=== PATIENT | male | born 1955 | race Caucasian/White ===

== ENCOUNTER 2020-03-22 05:54 | Day surgery (SDC) | payer BC ==
[2020-03-15 09:22] LABS: Absolute Lymphocytes (CBC) 1.2 K/uL (0.7-4.9); Basophils % 0.5 % (0-1.3); Hematocrit 39.2 % (39.6-49.0); Lymphocytes % 24.7 % (15.3-44.8); MPV 9.3 fL (7.6-11.3); RBC Red Blood Cell Count 4.56 M/uL (4.33-5.43)
[2020-03-15 09:36] LABS: Protime INR 1.03
[2020-03-15 09:42] LABS: Potassium 4.2 mmol/L (3.5-5.1)
--- NOTE | 2020-03-15 12:29 | RAD REPORT ---
EXAM DESCRIPTION: Fabiola Jimenez (2 Views)03/15/2020 9:02 am CLINICAL HISTORY: Preop for rotator cuff surgery COMPARISON: None FINDINGS: The lungs appear clear of acute infiltrate. The heart is normal size. Postsurgical changes involve chest IMPRESSION: No acute abnormalities displayed
--- OUTSIDE RECORDS SUMMARY | 2020-03-22 05:56 | XMS REPORT | Continuity of Care Document ---
:1955 Author Organization [employer] Care Team Providers Name Role Phone [employer] Unavailable Un available Problems Problem Status Onset Classification Date Comments Sourc e Date Reported Diabetes mellitus Active Problem 03/03/2020 M ischer (disorder) Neuro Hyperlipidemia Active Problem 03/03/2020 Misc her (disorder) Neuro Hypertensive Active Problem 03/03/2020 Mische r disorder, systemic N euro arterial (disorder) Hypothyroidism Active Problem 03/03/2020 Misc her (disorder) Neuro Transient ischemic Active Problem 03/03/2020 Mischer attack (disorder) Ne uro Medications Medication Details Route Status Patient Ordering Order Source Instructions Provider Date Metformin 1 tab, PO, Active Mischer hydrochloride BID, 0 020 Neuro 1000 MG / Refill(s) sitagliptin 50 MG Oral Tablet [Janumet ] Thyroxine 0.3 mg, Active Mischer PO, Daily, 020 Neuro 0 Refill(s) atorvastatin 40 mg, PO, Active Mischer Daily, 0 020 Neuro Refill(s) carvedilol 6.25 mg, Active Mischer PO, BID, 0 020 Neuro Refill(s) Lisinopril 2.5 mg, Active Mischer PO, Daily, 020 Neuro 0 Refill(s) Aspirin 81 mg, PO, Active Mischer Daily, 0 020 Neuro Refill(s) Allergies, Adverse Reactions, Alerts No Known Medication Allergies Immunizations No Data Provided for This Section Results No Data Provided for This Section Pathology Reports No Data Provided for This Section Diagnostic Reports No Data Provided for This Section Consultation Notes No Data Provided for This Section Discharge Summaries No Data Provided for This Section History and Physicals No Data Provided for This Section Vital Signs Vital Sign Value Date Comments Source Systolic (mm Hg) 129 03/01/2020 [facility] Umer ro Diastolic (mm Hg) 72 03/01/2020 [facility] Ne uro Heart Rate 60 03/01/2020 [facility] Neuro Respitory Rate 16 03/01/2020 [facility] Neuro Height 172.72 cm 03/01/2020 [facility] Neuro Weight 81.818 03/01/2020 [facility] Neuro BMI Calculated 27.43 03/01/2020 [facility] Neuro Temperature Oral (F) 97.7 F 03/01/2020 [facility] Neuro Encounters Location Location Encounter Encounter Reason Attending ADM DC Stat us Source Details Type Number For Provider Date Date Visit Outpatient [id number] Sorin 03/01 Active [facility] [place] [facility] Outpatient [id number] Sorin 03/01 03/02 [facility] Neurology [facility] /2019 Neuro [place] [facility] [id number] Sorin 04/12 Active [facility] [place] Procedures Procedure Code Date Perfomer Comments Source Coronary bypass [id number] [facility] N euro graft angiography Assessment and Plan No Data Provided for This Section Plan of Care No Data Provided for This Section Social History Social History Date Source Social History TypeResponse 03/01/2020 [facility] Neur o Alcohol Type Beer.1 Employment/School 2 Smoking Status Never smoker; Exposure to Tobacco Smoke Unable to obtain; Cigarette Smoking Last 365 Days Unable to obtain; Reg Smoking Cessation Counseling No entered on: 03/01/20 1Beer once [id number] release medical inf ormation to - Grace Munizmasood. POA- Family History No Data Provided for This Section Advance Directives No Data Provided for This Section Functional Status No Data Provided for This Section
--- OUTSIDE RECORDS SUMMARY | 2020-03-22 05:57 | XMS REPORT ---
:1955 Author Organization [employer] Care Team Providers Name Role Phone Fredy Leo Provider Role Unavailable Allergies No Known Allergies Problems Problem Type Condition Code Onset Dates Condition Statu s Problem Hyperlipidemia E78.5 Active Problem Otitis externa, left H60.92 Active Problem H/O TIA (transient ischemic attack) Z86.73 Active and stroke Problem Tendonitis M77.9 Active Problem Diabetes type 2, uncontrolled E11.65 Active Problem Benign essential HTN I10 Active Problem Hypothyroidism E03.9 Active Problem Primary osteoarthritis of right M19.011 Active shoulder Problem Other chronic pain G89.29 Active Problem Tear of right rotator cuff, M75.101 Active unspecified tear extent, unspecified whether traumatic Problem Chronic hepatitis B B18.1 Active Problem Atherosclerosis of coronary artery I25.10 Active Problem Acute gout of left foot, M10.9 Act baylee unspecified cause Problem Gouty arthritis of left great toe M10.9 Active Medications No Known Medications Results No Known Results Summary Purpose [employer] Submission
--- OUTSIDE RECORDS SUMMARY | 2020-03-22 05:57 | XMS REPORT ---
:1955 Author Organization [employer] Care Team Providers Name Role Phone Jonathan Foreign Provider Role Unavailable Allergies No Known Allergies [...]
--- OUTSIDE RECORDS SUMMARY | 2020-03-22 05:57 | XMS REPORT ---
:1955 Author Organization [facility] t Address [address] [place] [address] Care Team Providers Name Role Phone Isrrael Spain Attending Clinician Problems Condition Condition Condition Status Onset Resolution Last Treating Co mments Source Name Details Category Date Date Treatment Clinician Date H/O TIA H/O TIA Problem Active [facility] (transient (transient [facility] k[facility] - ischemic ischemic Memori a attack) attack) l and stroke and stroke Ou tpati ent Clinics Chronic Chronic Problem Active [facility] hepatitis hepatitis [facility] - B B [facility] Hypothyroi Hypothyroi Problem Active [facility] dism dism [facility] Benign Benign Problem Active [facility] essential essential [facility] - HTN HTN [facility] Hyperlipid Hyperlipid Problem Active [facility] emia emia [facility] Atheroscle Atheroscle Problem Active [facility] rosis of rosis of [facility] - coronary coronary Memori a artery artery l Outpati ent Clinics Otitis Otitis Problem Active [facility] externa, externa, [facility] - left left [facility] Diabetes Diabetes Problem Active [facility] type 2, type 2, [facility] - uncontroll uncontroll Me moria ed ed l Outpati ent Clinics Tendonitis Tendonitis Problem Active [facility] Acute gout Acute gout Problem Active [facility] of left of left [facility] - foot, foot, Memoria unspecifie unspecifie l d cause d cause Outpati ent Clinics Other Other Problem Active [facility] chronic chronic [facility] pain pain [facility] Primary Primary Problem Active [facility] osteoarthr osteoarthr Deneen kes - itis of itis of Memoria right right l shoulder shoulder Outpat i ent Clinics Tear of Tear of Problem Active [facility] right right [facility] - rotator rotator Memoria cuff, cuff, l unspecifie unspecifie Ou tpati d tear d tear ent extent, extent, Clinics unspecifie unspecifie d whether d whether traumatic traumatic Episodic Episodic Problem [facility] memory memory [facility] loss loss [facility] Diabetes Problem Active 2020-03-03 Mis yoon mellitus 23:16:53 Neuro (disorder) Diabetes mellitus (disorder) Active Problem 03/03/2020 [facility] Neuro Hyperlipid Problem Active 2020-03-03 M ischer emia 23:16:53 Neuro (disorder) Hyperlipid emia (disorder) Active Problem 03/03/2020 [facility] Neuro Hypertensi Problem Active 2020-03-03 M ischer ve 23:16:53 Neuro disorder, systemic Hypertensi arterial ve (disorder) disorder, systemic arterial (disorder) Active Problem 03/03/2020 [facility] Neuro Hypothyroi Problem Active 2020-03-03 M ischer dism 23:16:53 Neuro (disorder) Hypothyroi dism (disorder) Active Problem 03/03/2020 [facility] Neuro Transient Problem Active 2020-03-03 Mi juancarlos ischemic 23:16:53 Neuro attack (disorder) Transient ischemic attack (disorder) Active Problem 03/03/2020 [facility] Neuro Allergies, Adverse Reactions, Alerts This patient has no known allergies or adverse reactions. Social History Social Habit Start Date Stop Date Quantity Comments Source Social History 2020-03-01 2020-03-01 [facility] 20:38:53 20:38:53 [facility] Medications Ordered Filled Start Stop Current Ordering Indication Dosage Frequency Signature Comments Components Source Medication Medication Date Date Medication? Clinician (SIG) Name Name Metformin Yes 1 tab, PO, Mi juancarlos hydrochlori 5-08 BID, 0 Neuro de 1000 MG 20:33: Refill(s) / 00 sitagliptin 50 MG Oral Tablet [Janumet ] Thyroxine Yes 0.3 mg, Misch er 5-08 PO, Daily, Neuro 20:33: 0 00 Refill(s) atorvastati Yes 40 mg, PO, Mischer n 5-08 Daily, 0 Neuro 20:33: Refill(s) 00 carvedilol Yes 6.25 mg, Mis yoon 5-08 PO, BID, 0 Neuro 20:33: Refill(s) 00 Lisinopril Yes 2.5 mg, Misc her 5-08 PO, Daily, Neuro 20:33: 0 00 Refill(s) Aspirin 2019-0 Yes 81 mg, PO, Misc her 5-08 Daily, 0 Neuro 20:33: Refill(s) 00 Cyclobenzap Cyclobenzap 2019- Yes Fredy [address] [facility] rine HCl rine HCl 4-20 Leo as needed Deneen kes - 00:00: for muscle Memoria 00 spasm l Outpati ent Clinics True Metrix True Metrix 0 Yes Fredy [address] [facility] Blood Blood 5-15 [facility] Glucose Glucose 00:00: Memoria Test Test 00 l Outpati ent Clinics Carvedilol Carvedilol Yes Fredy [address] [facility] Lipitor Lipitor Yes Fredy [address] [facility] Aspir-81 Aspir-81 Yes Fredy [address] [facility] Synthroid Synthroid Yes Fredy [address] [facility] on an [facility] - empty Memoria stomach in l the Outpati morning ent Clinics Benzonatate Benzonatate Yes Fredy not [facility] defined [facility] MethylPREDN MethylPREDN Yes Fredy not [facility] ISolone ISolone Leo defined [facility] Lisinopril Lisinopril Yes Fredy [address] [facility] Janumet XR Janumet XR Yes Fredy [address] [facility] Duexis Duexis 2019- No Fredy [address] [facility] 04-30 Leo [facility] - 00:00 Memoria :00 l Outpati ent Clinics Immunizations Ordered Filled Immunization Date Status Comments [facility] e Immunization Name Name TDAP > 7 TDAP > 7 2019-02-[address] [facility] - Years-Adacel Years-Adacel 00:00:00 [facility] Outpatient Clinics Vital Signs Vital Name Observation Time Observation Value Comments Source Systolic (mm Hg) 2020-03-01 20:31:00 Misc her Neuro Diastolic (mm Hg) 2020-03-01 20:31:00 Mis yoon Neuro Heart Rate 2020-03-01 20:31:00 [facility] Neuro Respitory Rate 2020-03-01 20:31:00 Mische r Neuro Height 2020-03-01 20:31:00 172.72 cm [facility] Neuro Weight 2020-03-01 20:31:00 [facility] Neuro BMI Calculated 2020-03-01 20:31:00 Mische r Neuro Temperature Oral (F) 2020-03-01 20:31:00 97.7 F [facility] Neuro Procedures Procedure Date / Time Performed Performing Clinician Sour e Coronary bypass graft Mischer Ne uro angiography Encounters Start End Encounter Admission Attending Care Care Encounter Source Date/Time Date/Time Type Type Clinicians Facility Department ID 2020-04-12 2020-04-12 Outpatient MHIEALT MHIEALT [id number] [facility] 10:15:00 10:15:00 01 morales Pelayo 2020-03-01 2020-03-02 Outpatient MHIEALT MNA [id number] [facility] 20:15:00 04:59:59 Neurology 00 Neur o Elio 2020-03-01 2020-03-01 Outpatient JAQUAN Spain GRISELDASCHKETURAH [id number] 15:15:00 23:59:59 Sorin 00 Isrrael 2020-03-01 2020-03-01 [facility] [id number] 15:15:00 00 morales Pelayo 2020-02-26 2020-02-26 [facility] [id number] [facility] 15:06:00 15:06:00 [facility] Clinics 2020-02-23 2020-02-23 [facility] [id number] [facility] 08:15:00 08:15:00 t [facility] 2020-02-12 2020-02-12 [facility] [id number] [facility] 11:16:00 11:16:00 t [facility] Medicine [facility] ent [facility] 2020-02-12 2020-02-12 [facility] [id number] [address] 09[facility]06:00 09:06:[address] [facility] [place] [place] Medicine Outpati ent Clinics 2020-02-09 2020-02-09 [facility] [id number] [facility] 10:15:00 10:15:[address] [facility] [place] Medicine Outpati ent Clinics 2020-02-05 2020-02-05 [facility] [id number] [address] 15:19:00 15:19:[address] [facility] [place] Medicine Outpati ent Clinics 2020-01-22 2020-01-22 [facility] [id number] [address] 09:43:00 09:43:00 t [facility] Clin[facility] 2020-01-15 2020-01-15 [facility] [id number] [facility] 10:37:00 10:37:00 t [facility] Clin[facility] 2020-01-12 2020-01-12 [facility] [id number] [facility] [address] 10:00:00 10:00:00 t [facility] Clinics 2019-12-11 2019-12-11 [facility] [id number] 13[facility]12:00 13:12:[address] [facility] [place] Medicine Outpati ent Clinics 2019-12-08 2019-12-08 [facility] [id number] [facility] [address] 10:02:00 10:02:[address] [facility] [place] Medicine Outpati ent Clinics 2019-11-24 2019-11-24 [facility] [id number] [facility] 11:15:00 11:15:[address] [facility] [place] Medicine Outpati ent Clinics 2019-07-26 2019-07-26 [facility] [id number] 15:00:00 15:00:[address] [facility] [place] Medicine Outpati ent Clinics 2019-05-25 2019-05-25 [facility] [id number] [facility] 09:24:00 09:24:[address] [place] [address] [facility] - Drive [facility] Medicine Medicine Outpati ent Clinics 2019-04-13 2019-04-13 [facility] [id number] [facility] 10:15:00 10:15:[address] [place] [address] Luke [facility] - Drive [facility] Medicine Medicine Outpati ent Clinics 2019-04-07 2019-04-07 [facility] [id number] [facility] 08:25:00 08:25:[address] [place] [address] [facility] - Drive [facility] Medicine l Medicine Outpati ent Clinics 2019-02-22 2019-02-22 [facility] [id number] 15:30:00 15:30:[address] [place] [address] Luke [facility] - Drive [facility] [place] Medicine Outpati ent Clinics 2019-01-03 2019-01-03 [facility] [id number] 15:15:00 15:15:[address] [place] [address] Luke [facility] - Drive [facility] [place] Medicine Outpati ent Clinics 2018-12-02 2018-12-02 [facility] [id number] 08:47:00 08:47:00 [place] [address] [facility] - Drive [facility] [place] Medicine Outpati ent Clinics 2018-10-11 2018-10-11 [facility] [id number] [address] 16:06:00 16:06:00 [place] [address] Luke s - Drive [facility] [place] Medicine Outpati ent Clinics 2018-07-21 2018-07-21 [facility] [id number] 12:12:00 12:12:00 [place] [address] Luke s - Drive [facility] [place] Medicine Outpati ent Clinics 2018-07-14 2018-07-14 [facility] [id number] 19:47:00 19:47:00 [place] [address] Luke s - Drive [facility] [place] Medicine Outpati ent Clinics 2018-06-30 2018-06-30 [facility] [id number] [address] 12:44:00 12:44:00 [place] [address] Luke s - Drive [facility] [place] Medicine Outpati ent Clinics 2018-06-06 2018-06-06 [facility] [id number] [address] 13:39:00 13:39:00 t [employer] - [employer] [facility] [place] Medicine Outpati ent Clinics 2018-06-02 2018-06-02 [facility] [id number] [address] 14:30:00 14:30:00 t [employer] - [facility] [place] Medicine Outpati ent Clinics 2018-04-15 2018-04-15 [facility] [id number] [facility] 09:45:00 09:45:00 t [employer] - [facility] [place] Medicine Outpati ent Clinics 2018-03-09 2018-03-09 [facility] [id number] 16:07:00 16:07:00 t [employer] [facility] [place] Medicine Outpati ent Clinics 2018-03-08 2018-03-08 [facility] [id number] 15:26:00 15:26:[address] [facility] [place] Medicine Outpati ent Clinics 2018-03-08 2018-03-08 [facility] [id number] 15:00:00 15:00:[address] [facility] [place] Medicine Outpati ent Clinics Results Test Description Test Time Test Comments Results Result Comments Source Comprehensive Metabolic Panel 2020-01-31 14:48:12 Test Item Value Reference Range Interpretation Comme nts Sodium Level (test code = Sodium Level) 139 mmol/L 136-145 Potassium Level (test code = Potassium Level) 4.4 mmol/L 3.5-5.1 Chloride Level (test code = Chloride Level) 104 mmol/L 98-107 CO2 (test code = CO2) 29 mmol/L 21-32 Anion Gap (test code = Anion Gap) 6 mmol/L 7-16 L BUN (test code = BUN) 13 mg/dL 7-18 Creatinine Level (test code = Creatinine Level) 0.9 mg/dL 0.7-1. 3 Glucose Level (test code = Glucose Level) 150 mg/dL 74-106 H Calcium Level (test code = Calcium Level) 9.3 mg/dL 8.5-10.1 Alk Phos (test code = Alk Phos) 114 IntlUnit/L 45-122 Bilirubin Total (test code = Bilirubin Total) 0.7 mg/dL 0.2-1.0 Albumin Level (test code = Albumin Level) 4.4 g/dL 3.4-5.0 Protein Total (test code = Protein Total) 7.3 g/dL 6.4-8.2 ALT (test code = ALT) 30 IntlUnit/L 12-78 AST (test code = AST) 16 IntlUnit/L 10-34 Creatine [id number] 14:48:12 Test Item Value Reference Range Interpretation Comments CK (test code = CK) 75 IntlUnit/L 39-308 Comprehensive Metabolic [id number] 14:48:12 Test Item Value Reference Range Interpretation Comments Sodium Level (test code = 139 mmol/L 136-145 Sodium Level) Potassium Level (test code 4.4 mmol/L 3.5-5.1 = Potassium Level) Chloride Level (test code 104 mmol/L 98-107 = Chloride Level) CO2 (test code = CO2) 29 mmol/L 21-32 Anion Gap (test code = 6 mmol/L 7-16 L Anion Gap) BUN (test code = BUN) 13 mg/dL 7-18 Creatinine Level (test 0.9 mg/dL 0.7-1.3 code = Creatinine Level) Glucose Level (test code = 150 mg/dL 74-106 H Glucose Level) Calcium Level (test code = 9.3 mg/dL 8.5-10.1 Calcium Level) Alk Phos (test code = Alk 114 IntlUnit/L 45-122 Phos) Bilirubin Total (test code 0.7 mg/dL 0.2-1.0 = Bilirubin Total) Albumin Level (test code = 4.4 g/dL 3.4-5.0 Albumin Level) Protein Total (test code = 7.3 g/dL 6.4-8.2 Protein Total) ALT (test code = ALT) 30 IntlUnit/L 12-78 AST (test code = AST) 16 IntlUnit/L 10-34 eGFR AA (test code = eGFR >60 mL/min/1.73 m2 N AA) Comprehensive Metabolic [id number] 14:48:12 Test Item Value Reference Range Interpretation Comments Sodium Level (test code = 139 mmol/L 136-145 Sodium Level) Potassium Level (test code 4.4 mmol/L 3.5-5.1 = Potassium Level) Chloride Level (test code 104 mmol/L 98-107 = Chloride Level) CO2 (test code = CO2) 29 mmol/L 21-32 Anion Gap (test code = 6 mmol/L 7-16 L Anion Gap) BUN (test code = BUN) 13 mg/dL 7-18 Creatinine Level (test 0.9 mg/dL 0.7-1.3 code = Creatinine Level) Glucose Level (test code = 150 mg/dL 74-106 H Glucose Level) Calcium Level (test code = 9.3 mg/dL 8.5-10.1 Calcium Level) Alk Phos (test code = Alk 114 IntlUnit/L 45-122 Phos) Bilirubin Total (test code 0.7 mg/dL 0.2-1.0 = Bilirubin Total) Albumin Level (test code = 4.4 g/dL 3.4-5.0 Albumin Level) Protein Total (test code = 7.3 g/dL 6.4-8.2 Protein Total) ALT (test code = ALT) 30 IntlUnit/L 12-78 AST (test code = AST) 16 IntlUnit/L 10-34 eGFR AA (test code = eGFR >60 mL/min/1.73 m2 N AA) eGFR Non-AA (test code = >60 mL/min/1.73 m2 N eGFR Non-AA) Troponin [id number] 14:46:15 Test Item Value Reference Range Interpretation Comments Troponin-I (test code = <0.015 ng/mL 0.010-0.040 Troponin-I) Complete Blood Count with [id number] 14:24:52 Test Item Value Reference Range Interpretation Comments WBC (test code = WBC) 5.9 x10 4.8-10.8 RBC (test code = RBC) 4.67 x10 4.60-6.20 Hgb (test code = Hgb) 13.9 g/dL 14.0-18.0 L MCV (test code = MCV) 86.7 fL 80.0-95.0 Hct (test code = Hct) 40.5 % 38.0-52.0 RDW (test code = RDW) 12.7 % 11.5-14.5 MCHC (test code = MCHC) 34.2 g/dL 31.0-36.0 MCH (test code = MCH) 29.7 pg 26.0-32.0 Platelets (test code = 205 x10 140-440 Platelets) MPV (test code = MPV) 9.3 fL 7.5-11.2 Slide Review (test code Auto N Resu lt created by = Slide Review) GL_SET_SLIDE _REVIEW_A UTO Automated [id number] 14:24:52 Test Item Value Reference Range Interpretation Comments Neutro Auto (test code = Neutro Auto) 57.2 % N Lymph Auto (test code = Lymph Auto) 29.5 % N Parke Auto (test code = Parke Auto) 11.5 % N Eos, Auto (test code = Eos, Auto) 1.2 % N Basophil Auto (test code = Basophil 0.6 % N Auto) Neutro Absolute (test code = Neutro 3.4 x10 2.7-7.3 Absolute) Lymph Absolute (test code = Lymph 1.7 x10 0.8-3.5 Absolute) Parke Absolute (test code = Parke 0.7 x10 0.3-0.9 Absolute) Eos Absolute (test code = Eos 0.1 x10 0.0-0.3 Absolute) Baso Absolute (test code = Baso 0.0 x10 0.0-0.1 Absolute) CT Brain/Head w/o [id number] 12:50:28Patient: ANA MARTINEZ Date/Time01/31/202012:38 CDTReason for Exammemory lapse;Other (please specify)ReportCT brain without contrastHISTORY: Memory loss, TIA, slurred speech, facial droopingCOMPARISON: NoneTECHNIQUE: Helical noncontrast tomographic imaging obtained through the brain. Dose reduction technique performed per ALARA.FINDINGS: Midline is nondisplaced. No hydrocephalus. Limited periventricular white matter changes present. No mass effect or acute intracranial blood products. Surrounding calvarium is intact. Included paranasal sinuses and mastoid air cells well aerated.IMPRESSION: No CT evidence of acute cortical stroke or intracranial hemorrhage. Final Dictated by: MD Linden, Neftaly DT/TM: 01/31/2020 12:47 pmSigned by: MD Cheatham JamesSigned (Electronic Signature): 01/31/2020 12:50 pm
--- OUTSIDE RECORDS SUMMARY | 2020-03-22 05:57 | XMS REPORT ---
:1955 Author Organization eClinicalWorks Care Team Providers Name Role Phone Fredy Leo Provider Role Unavailable Allergies, Adverse Reactions, Alerts Substance Reaction Event Type N.K.D.A. Info Not Available Non Drug Allergy Problems Problem Type Condition Code Onset Dates Condition Statu s Problem Hyperlipidemia E78.5 Active Problem Otitis externa, left H60.92 Active Problem H/O TIA (transient ischemic attack) Z86.73 Active and stroke Problem Primary osteoarthritis of right M19.011 Active shoulder Problem Other chronic pain G89.29 Active Problem Tear of right rotator cuff, M75.101 Active unspecified tear extent, unspecified whether traumatic Problem Chronic hepatitis B B18.1 Active Problem Atherosclerosis of coronary artery I25.10 Active Problem Acute gout of left foot, M10.9 Act baylee unspecified cause Problem Gouty arthritis of left great toe M10.9 Active Assessment Tear of right rotator cuff, M75.101 Active unspecified tear extent, unspecified whether traumatic Problem Tendonitis M77.9 Active Problem Diabetes type 2, uncontrolled E11.65 Active Assessment Pain, joint, shoulder, right M25.511 Active Problem Benign essential HTN I10 Active Problem Hypothyroidism E03.9 Active Medications Medication Code Code Instructions Start End Date Status Dosage System Date Lisinopril [facility] 49573158621 2.5 MG Orally Active 1 t ablet Once a day Carvedilol [facility] 19381387014 6.25 MG Orally Active 1 tablet BID True Metrix [facility] 11883995134 - In Vitro Active as Blood Glucose check twice a dire cted Test day Synthroid ND 54908828669 137 MCG Orally Active 1 t ablet Once a day on an empty stomach in the morning Duexis [facility] 10430741339 800-26.6 MG January Active 1 tablet Orally Three 30, 2020 times a day PRN Aspir-[address] [facility] 54837009922 81 MG Orally Active 1 tabl et Once a day Lipitor [facility] 68359386669 40 MG Orally Active 1 table t Once a day Janumet XR [facility] 36045805326 50mg/1,000mg Active 2 ta blet Orally once a day Levothyroxine [facility] 62862424619 112 MCG Oral Active n ot Sodium defined Results No Known Results Summary Purpose eClinicalWorks Submission
--- OUTSIDE RECORDS SUMMARY | 2020-03-22 05:58 | XMS REPORT ---
:1955 Author Organization e[employer]Works Care Team Providers Name Role Phone Jonathan Foreign Provider Role Unavailable Allergies No Known Allergies Problems Problem Type Condition Code Onset Dates Condition Statu s Problem H/O TIA (transient ischemic attack) Z86.73 Active and stroke Problem Atherosclerosis of coronary artery I25.10 Active Problem Otitis externa, left H60.92 Active Problem Tear of right rotator cuff, M75.101 Active unspecified tear extent, unspecified whether traumatic Problem Primary osteoarthritis of right M19.011 Active shoulder Problem Episodic memory loss R41.3 Active Problem Gouty arthritis of left great toe M10.9 Active Problem Chronic hepatitis B B18.1 Active Problem Other chronic pain G89.29 Active Problem Acute gout of left foot, M10.9 Act baylee unspecified cause Assessment Diabetes type 2, uncontrolled E11.65 Active Assessment Hypothyroidism E03.9 Active Problem Diabetes type 2, uncontrolled E11.65 Active Problem Benign essential HTN I10 Active Problem Hypothyroidism E03.9 Active Problem Tendonitis M77.9 Active Problem Hyperlipidemia E78.5 Active Medications Medication Code Code Instructions Start End Date Status Dosage System Date Duexis [facility] 36097711848 800-26.6 MG Active 1 tablet Orally Three times a day PRN Synthroid [facility] 46071639350 137 MCG Orally January Active 1 t ablet on Once a day 2019 an empty stomach in the morning Aspir-81 [facility] 29192010890 81 MG Orally Active 1 tabl et Once a day Synthroid [facility] 38846976990 125 MCG Orally Active 1 t ablet on Once a day an empty stomach in the morning Carvedilol [facility] 87878816953 6.25 MG Orally Active 1 tablet BID True Metrix [facility] 36516519323 - In Vitro Active as di rected Blood Glucose check twice a Test day Janumet XR [facility] 55444489036 50mg/1,000mg Active 2 ta blet Orally once a day Lipitor [facility] 16353937089 40 MG Orally Active 1 table t Once a day Lisinopril [facility] 78423739897 2.5 MG Orally Active 1 t ablet Once a day Results No Known Results Summary Purpose eClinicalWorks Submission
--- OUTSIDE RECORDS SUMMARY | 2020-03-22 05:58 | XMS REPORT ---
:1955 Author Organization eClinicalWorks Care Team Providers Name Role Phone Jonathan [facility] Provider Role Unavailable Allergies, Adverse Reactions, Alerts Substance Reaction Event Type N.K.D.A. Info Not Available Non Drug Allergy Problems Problem Type Condition Code Onset Dates Condition Statu s Assessment Onychomycosis B35.1 Active Assessment Other chronic pain G89.29 Active Problem Hypothyroidism E03.9 Active Assessment Gouty arthritis of left great toe M10.9 Active Problem Hyperlipidemia E78.5 Active Assessment Hyperlipidemia E78.5 Active Problem H/O TIA (transient ischemic attack) Z86.73 Active and stroke Problem Atherosclerosis of coronary artery I25.10 Active Problem Otitis externa, left H60.92 Active Problem Tear of right rotator cuff, M75.101 Active unspecified tear extent, unspecified whether traumatic Problem Primary osteoarthritis of right M19.011 Active shoulder Assessment Pain in right shoulder M25.511 Activ e Assessment Hypothyroidism E03.9 Active Problem Episodic memory loss R41.3 Active Assessment Atherosclerosis of coronary artery I25.10 Active Problem Gouty arthritis of left great toe M10.9 Active Problem Chronic hepatitis B B18.1 Active Problem Other chronic pain G89.29 Active Problem Acute gout of left foot, M10.9 Act baylee unspecified cause Assessment Episodic memory loss R41.3 Active Assessment History of TIA (transient ischemic Z86.73 Active attack) Assessment Benign essential HTN I10 Active Assessment Diabetes type 2, uncontrolled E11.65 Active Problem Diabetes type 2, uncontrolled E11.65 Active Problem Benign essential HTN I10 Active Problem Tendonitis M77.9 Active Medications Medication Code Code Instructions Start End Status Dosage System Date Date Synthroid [facility] 16487768566 137 MCG Orally Active 1 t ablet on Once a day an empty stomach in the morning -81 [facility] 78805287782 81 MG Orally Active 1 tabl et Once a day Carvedilol [facility] 18168361195 6.25 MG Orally Active 1 tablet BID Lipitor [facility] 34953334680 40 MG Orally Active 1 table t Once a day Janumet XR [facility] 49326288621 50mg/1,000mg Active 2 ta blet Orally once a day Duexis [facility] 17871661300 800-26.6 MG Active 1 tablet Orally Three times a day PRN True Metrix [facility] 20433098833 - In Vitro check Active as directed Blood Glucose twice a day Test Lisinopril [facility] 03510069228 2.5 MG Orally Active 1 t ablet Once a day Results No Known Results Summary Purpose eClinicalWorks Submission
--- OUTSIDE RECORDS SUMMARY | 2020-03-22 05:58 | XMS REPORT ---
[...] foot, M10.9 Act baylee unspecified cause Assessment Pain in right shoulder M25.511 Activ e Problem Diabetes type 2, uncontrolled E11.65 Active Problem Benign essential HTN I10 Active Problem Hypothyroidism E03.9 Active Problem Tendonitis M77.9 Active Problem Hyperlipidemia E78.5 Active Medications Medication Code Code Instructions Start End Status Dosage System Date Date Duexis [facility] 02067424176 800-26.6 MG Active 1 tablet Orally Three times a day PRN Cyclobenzaprine ND 49588837961 5 MG Orally January Active 1 tablet HCl twice a day 2019 as needed for muscle spasm True Metrix Blood [facility] 84777191213 - In Vitro Active 1 test Glucose Test twice a day strip Results No Known Results Summary Purpose eClinicalWorks Submission
--- OUTSIDE RECORDS SUMMARY | 2020-03-22 05:59 | XMS REPORT ---
[...] foot, M10.9 Act baylee unspecified cause Problem Diabetes type 2, uncontrolled E11.65 Active Problem Benign essential HTN I10 Active Problem Hypothyroidism E03.9 Active Problem Tendonitis M77.9 Active Problem Hyperlipidemia E78.5 Active Medications No Known Medications Results No Known Results Summary Purpose eClinicalWorks Submission
--- OUTSIDE RECORDS SUMMARY | 2020-03-22 05:59 | XMS REPORT ---
[...] foot, M10.9 Act baylee unspecified cause Assessment Tear of right rotator cuff, M75.101 Active unspecified tear extent, unspecified whether traumatic Assessment Pain, joint, shoulder, right M25.511 Active Assessment Impingement syndrome of right M75.41 Active shoulder Problem Diabetes type 2, uncontrolled E11.65 Active Problem Benign essential HTN I10 Active Problem Hypothyroidism E03.9 Active Problem Tendonitis M77.9 Active Problem Hyperlipidemia E78.5 Active Medications Medication Code Code Instructions Start End Status Dosage System Date Date Carvedilol ND 21529685358 6.25 MG Orally Active 1 tablet BID Lipitor ND 12030691893 40 MG Orally Active 1 table t Once a day Cyclobenzaprine HCl ND 05915514667 5 MG Orally January Acti ve 1 tablet twice a day , as needed 2019 for muscle spasm True Metrix Blood [facility] 05834273404 - In Vitro Active 1 test Glucose Test twice a day strip Aspir-81 [facility] 32899603077 81 MG Orally Active 1 tabl et Once a day Synthroid ND 44317114573 125 MCG Orally Active 1 t ablet Once a day on an empty stomach in the morning Benzonatate [facility] [address]-63 Active not defined MethylPREDNISolone [facility] [address]-71 Active not defined Duexis [facility] 11927372123 800-26.6 MG Active 1 tablet Orally Three times a day PRN Lisinopril [facility] 98388689760 2.5 MG Orally Active 1 t ablet Once a day Janumet XR [facility] 38129740026 50mg/1,000mg Active 2 ta blet Orally once a day Results No Known Results Summary Purpose eClinicalWorks Submission
[2020-03-22] MEDS ORDERED: CEFAZOLIN/SWI 2gm 2 GM/20 ML SYR ONE (06:18)
[2020-03-22] MEDS ORDERED: NA CHLORIDE 0.9% 1,000 ML ONE (06:18)
[2020-03-22] MEDS ORDERED: LIDOCAINE 2% MPF 5 ML VIAL ONE ×2 (06:45→07:23)
[2020-03-22] MEDS ORDERED: NS 0.9% VIAL 20 ML ONE (06:45)
[2020-03-22] MEDS ORDERED: dexAMETHasone 10 MG/ML VIAL ONE (06:45)
[2020-03-22] MEDS ORDERED: FENTANYL CITR 100 MCG/2 ML ONE (06:45)
[2020-03-22] MEDS ORDERED: ROPLVACAINE HCL 40 ML ONE (06:46)
[2020-03-22] MEDS ORDERED: MIDAZOLAM HCL 2 MG/2 ML INJ ONE (06:46)
[2020-03-22] MEDS ORDERED: EPINEPHRINE/PF 1 MG/ML AMP ONE (07:06)
[2020-03-22] MEDS ORDERED: propofoL 200 MG/20 ML VIAL IV ONE (07:23)
[2020-03-22] MEDS ORDERED: ROCURONIUM 50 MG/5 ML VIAL IV ONE (07:23)
[2020-03-22] MEDS ORDERED: GLYCOPYRROLATE 0.2 MG/ML SYR ONE (08:29)
[2020-03-22] MEDS ORDERED: EPHEDRINE SULF 50 MG/ML VIAL ONE (08:29)
[2020-03-22] MEDS ORDERED: KETOROLAC 30 MG/ML INJ ONE (08:30)
[2020-03-22] MEDS ORDERED: ONDANSETRON 4 MG/2 ML VIAL ONE ×2 (08:30→10:14)
[2020-03-22] MEDS ORDERED: dexAMETHasone 4 MG/ML VIAL ONE (08:30)
[2020-03-22] MEDS ORDERED: NEOSTIGMINE 1 MG/ML -5 ML ONE (09:28)
--- NOTE | 2020-03-22 09:44 | P.BOP ---
Preoperative diagnosis: right rotator cuff tear, impingement, biceps tendinitis, spinoglenoid cyst Postoperative diagnosis: same, SLAP tear Primary procedure: right shoulder arthroscopic rotator cuff repair Secondary procedure: right shoulder arthroscopic biceps tenotomy with cyst decom pression Other procedure(s): right shoulder arthroscopic subacromial decompression .Net Architect: NONE,NONE Estimated blood loss: <10 cc Specimen: none Findings: see dictation Anesthesia: General Complications: None Implants: 1- 5.5 mm arthrex corkscrew, 2- 4.75 mm arthrex swivelocks Fluids & blood products: per anesthesia record Transferred to: Recovery Room Condition: Good
--- NOTE | 2020-03-22 10:20 | RAD REPORT ---
EXAM DESCRIPTION: RAD - Shoulder 1 View - 03/22/2020 10:00 am FINDINGS: Single AP projection of the right shoulder obtained postoperatively. Humerus is in interna l rotation. No fracture or dislocation. No foreign body or retained surgical device. No suspicious or unexpected finding.
[2020-03-22] MEDS ORDERED: HYDROCODONE/APAP 7.5/325 MG TAB ONE (10:50)
[2020-03-22 12:42] VITALS: BP 106/69; TEMP 97; O2SAT 98
--- NOTE | 2020-03-23 00:03 | OP ---
Date of Procedure: 03/22/2020 Surgeon: Fredy Leo MD Preoperative Diagnoses: 1.Right shoulder rotator cuff tear. 2.Right shoulder bicipital tenosynovitis. 3.Right shoulder impingement syndrome. 4.Right shoulder spinoglenoid notch cyst. Postoperative Diagnoses: 1.Right shoulder rotator cuff tear. 2.Right shoulder bicipital tenosynovitis. 3.Right shoulder impingement syndrome. 4.Right shoulder spinoglenoid notch cyst. 5.Right shoulder type 1 SLAP tear. Procedure Performed: 1.Right shoulder arthroscopic rotator cuff repair. 2.Right shoulder arthroscopic biceps tenotomy with decompression of spinoglenoid notch cyst and SLAP tear debridement. 3.Right shoulder arthroscopic subacromial decompression. Anesthesia: General endotracheal. Fluids: Per Anesthesia record. Estimated Blood Loss: Less than 10 mL. Complications: None. Implants: 1.5.5 mm Arthrex corkscrew. 2.4.75 mm Arthrex SwiveLocks. Indication For Procedure: Alden is a 64-year-old male, presented to my clinic with signs, symptoms, and MRI findings consistent with a right shoulder full-thickness rotator cuff tear, impingement synd yuridia, as well as a spinoglenoid notch cyst. The patient failed conservative treatment measures and h ad significant pain that interferes with his activities of daily living. I discussed with the patien t risks and benefits associated with operative and nonoperative treatment at length and he expressed understanding and elected to proceed with the operative treatment. Description Of Procedure: After informed consent was obtained, the patient was identified in the pre operative holding area. The right upper extremity was marked, the patient was then taken to the PACU where he underwent an interscalene block to his right upper extremity performed by Anesthesia. He w as then taken back to the operating room, transferred to the operating table in the supine fashion, p laced under general endotracheal anesthesia. He was then placed in the beach chair position with his extremities well padded. The right upper extremity was then examined. The patient had full range o f motion in his right shoulder with no instability noted. The right upper extremity was then prepped and draped in usual sterile fashion. A time-out was initiated and correct patient and procedure wer e confirmed and identified. The patient did receive his preoperative prophylactic antibiotics via th e posterior portal position, a spinal needle was introduced in the glenohumeral joint. Glenohumeral joint was injected with 30 mL of normal saline to distend the capsule. A posterior portal was create d and the arthroscope was brought in via the posterior portal position under direct visualization. A n anterior portal and cannula were placed. Diagnostic arthroscopy was performed. The patient was no jqaui to have an intact subscapularis, stable on anterior and posterior labrum. There was noted to hav e a type 1 labral tear with some fraying. An arthroscopic shaver was then used to debride the type 1 superior labrum tear. The patient was noted also have a fraying of the biceps tendon near the bicep s tendon anchor. At that point, it was elected to proceed with biceps tenotomy. A meniscal biter wa s brought in via the anterior portal and a biceps tenotomy was performed. Preoperatively, the patien t was noted to have a spinoglenoid notch cyst just at the superior aspect of the superior labrum, a l ateral port was created and elevator was brought in from the lateral portal and this was decompressed passing the elevator along the superior neck of the glenoid. There was some extravasation of cystic fluid with completion of this decompression. There was no significant chondromalacia noted at the h umeral head or glenoid surface. No loose bodies found within the axillary pouch. The patient was no jaqui to have a full-thickness tear of the supraspinatus as was noted after making a lateral portal. T he greater tuberosity was then debrided using the arthroscopic shaver to create a bleeding bony bed t o aid with repair. The undersurface supraspinatus tear was then debrided with arthroscopic shaver to aid with healing of the repair. The arthroscope was then brought in the subacromial space where a s ubacromial bursectomy was performed using a grasper, it was noted that the rotator cuff tear did redu ce well onto the greater tuberosity. A stab incision was made just lateral to the acromion and a 5.5 mm double loaded Arthrex corkscrew anchor was placed with overall good fixation within the bone. Th e sutures were then passed through this rotator cuff tear tendon in an anterior to posterior fashion and then tied in a horizontal mattress fashion. The sutures were then placed in a aliyah-cross config uration and 2 lateral row anchors were placed using 4.75 mm SwiveLock with overall reduction of the r otator cuff tear on its footprint on the greater tuberosity. There was noted to be fraying of the co racoacromial ligament as well as some spurring of the undersurface of the acromion. At that point, i t was elected to proceed with subacromial decompression. The undersurface of the acromion was debrid ed using a radiofrequency ablator. The arthroscopic anil was then used to perform an acromioplasty. There was no obvious impingement after this was completed. Arthroscopic instruments were then remov ed without complication, wounds were then irrigated thoroughly with normal saline. Subcutaneous tiss ue was approximated using a 2-0 Vicryl. Skin and portals were approximated using a 3-[address] erile dressings were applied. The patient was placed in a shoulder immobilizer, awakened and transfe rred to PACU in stable condition. Postoperative Plan: The patient will begin physical therapy per medium rotator cuff repair protocol and 3 weeks postop and follow up in my clinic 1 week for wound check and dressing change. JUNITO/KELLEL Voice ID: [id number] Report ID: [id number]
== END 2020-03-22 12:15 | disposition home or self-care (01) ==
LOC: OR 05:54
PROVIDERS: ATTEND Orthopaedic Surgery Sports Medicine
PROC: 0RNJ4ZZ Release Right Shoulder Joint, Percutaneous Endoscopic Approach (ICD-10-PCS; 2020-03-22)
PROC: 0LQ14ZZ Repair Right Shoulder Tendon, Percutaneous Endoscopic Approach (ICD-10-PCS; principal; 2020-03-22 07:30)
DX: M75.121 Complete rotator cuff tear or rupture of right shoulder, not specified as traumatic (principal); M75.21 Bicipital tendinitis, right shoulder; M75.41 Impingement syndrome of right shoulder; M25.811 Other specified joint disorders, right shoulder; S43.431A Superior glenoid labrum lesion of right shoulder, initial encounter; Z11.59 Encounter for screening for other viral diseases; E11.69 Type 2 diabetes mellitus with other specified complication; I10 Essential (primary) hypertension; E03.9 Hypothyroidism, unspecified
CPT/HCPCS: 29827; 29826; 29822; 85025; 80048; 36415; 85610; 82947 ×2; 85730; 71046; 73020; 29999; J2704; J0171; J2250; J3010; J1100; J2795; J2710; J0690; J7030; J2405 ×2